=== PATIENT | male | born 1975 | race Two or more races ===

== ENCOUNTER 2024-05-18 23:09 | Inpatient (IN) | payer OTHER ==
[~2024-05-18] VITALS: Ht 180.3 cm; Wt 107.3 kg
--- NOTE | 2024-05-18 23:48 | ED.PDOC ---
History of Present Illness HPI Comments 49 y/o M, with a history of arterial vascular disease, obesity, DM, HLD, HTN, and right BKA, is BIBA for c/o left-leg weakness, left-foot and right-stump pain, diarrhea, and confusion, today. Patient is a poor historian. He endorses on left-foot pain onset after dropping a "battery" on it, recently, and deve loping right-stump pain, due to pain extra weight on it and it rubbing against his prosthetic from improper fitment. Patient states on having other remaining symptoms for 2x weeks following unprovoked onset. Patient was noted to have had a blood glucose of 234 on scene, with all remaining vitals within normal limits and stable. He has no reports chest pain, shortness of breath, nausea, vomiting, fever, or chills at this time. Chief Complaint: Lower Extremity Time Seen by MD: 23:15 Reviewed Notes: Nurses Notes, [employer] Notes, Medications, Allergies Information Source: Patient, Emergency Med Personnel Mode of Arrival: EMS Severity: Moderate Timing: Weeks Duration: Since onset Prehospital treatment: 12 Lead EKG, Accucheck, [employer] Past Medical History PAST MEDICAL HISTORY: DM, High Lipids, HTN Past Medical History (Other): arterial vascular disease, obesity Surgical History: BKA (right-leg) Family History Family History: Unknown Social History Smoker: Non-Smoker Alcohol: Occasionally Drugs: Denies Drug Use Lives In: Home All Other Systems: Reviewed and Negative (Comprehensive systems review obtained and negative except for what is stated in the HPI.) Physical Exam General Appearance: No Apparent Distress, Obese HEENT: Normal ENT Inspection, Pharynx Normal, TMs Normal Neck: Full Range of Motion, Non-Tender, Normal, Normal Inspection Respiratory: Chest Non-Tender, Lungs Clear, No Accessory Muscle Use, No Respiratory Distress, Normal Breath Sounds Cardiovascular: No Edema, No JVD, No Murmur, No Gallop, Normal Peripheral Pulses, Regular Rate/Rhythm Breast Exam: Deferred Gastrointestinal: No Organomegaly, Non Tender, No Pulsatile Mass, Normal Bowel Sounds, Soft Genitalia: Deferred Pelvic: Deferred Rectal: Deferred Extremities: No calf tenderness, Normal capillary refill, Normal inspection, Normal range of motion, Non-tender, No pedal edema, Other (Right below-knee amputation ) Musculoskeletal : Apperance: Normal Neurologic: Alert, superintendent service II-XII nml as Tested, No Motor Deficits, Normal Affect, Normal Mood, No Sensory Deficits Cerebellar Function: Normal Reflexes: Normal Skin: Dry, Normal Color, Warm Lymphatic: No Adenopathy Was a procedure done? Was a procedure done?: No EKG EKG : Pulse Rate (adult): 79 [place]: Normal Cardiac Rhythm: NSR Block: None Hypertrophy: None ST: Normal Differential Dx Considerations may include: viral syndrome, UTI, URI, fractures, contusions, bruising, hyperglycemia X-Ray, Labs, Meds, VS Vital Signs Date Time Temp Pulse Resp B/P (MAP) Pulse Ox O2 Delivery O2 Flow Rate FiO2 05/19/24 01:09 79 22 96 Room Air* 0 21 05/19/24 00:15 98.0 79 22 139/77 (97) 96 98.0 05/19/24 00:00 79 05/18/24 23:48 79 05/18/24 23:18 99.1 87 16 138/74 (95) 100 05/18/24 23:09 79 Lab Test 05/19/24 00:14 05/18/24 23:27 Range/Units White Blood Count 5.3 4.4-10.8 10^3/uL Red Blood Count 4.51 4.5-5.90 10^6/uL Hemoglobin 12.8 L 13.5-17.5 g/dL Hematocrit 39.1 L 41.0-53.0 % Mean Corpuscular Volume 86.8 80.0-100.0 fL Mean Corpuscular Hemoglobin 28.4 28.0-32.0 pg Mean Corpuscular Hemoglobin Concent 32.7 32.0-36.0 g/dL Red Cell Distribution Width 17.8 H 11.8-14.3 % Platelet Count 86 L 140-450 10^3/uL Mean Platelet Volume 8.4 6.9-10.8 fL Neutrophils (%) (Auto) 37.0-80.0 % Lymphocytes (%) (Auto) 10.0-50.0 % Monocytes (%) (Auto) 0.0-12.0 % Basophils (%) (Auto) 0.0-2.0 % Neutrophils # (Auto) 1.6-8.6 10 ^3/uL Lymphocytes # (Auto) 0.4-5.4 10 ^3/uL Monocytes # (Auto) 0-1.3 10 ^3/uL Differential Total Cells Counted 100.0 100 Neutrophils % (Manual) 60 37.0-80.0 Band Neutrophils % (Manual) 0 Lymphocytes % (Manual) 26 10.0-50.0 Monocytes % (Manual) 12 0-12 Eosinophils % (Manual) 2 0-7 Basophils % (Manual) 0 0.0-2.0 Metamyelocytes % (manual) 0 Myelocytes % (Manual) 0 Promyelocytes % (Manual) 0 Blast Cells % (Manual) 0 Reactive Lymphocytes 0 Platelet Estimate Decreased Sodium Level 135 L 136-145 mmol/L Potassium Level 4.7 3.5-5.1 mmol/L Chloride Level 99 98-107 mmol/L Carbon Dioxide Level 25 20-31 mmol/L Anion Gap 11 5-15 Blood Urea Nitrogen 39 H 9-23 mg/dL Creatinine 1.41 H 0.700-1.30 mg/dL Glomerular Filtration Rate Calc 61 >90 mL/min BUN/Creatinine Ratio 27.7 H 10.0-20.0 Serum Glucose 253 H 74-106 mg/dL Calcium Level 14.3 *H 8.7-10.4 mg/dL Troponin I High Sensitivity 5 7 </=54 ng/L Lactic Acid Level Pending Plasma/Serum Blood Alcohol Pending Current Medications Medications (Trade) Dose Ordered Sig/Suleman Route Start Time Stop Time Status Last Admin Sodium Chloride 1,000 ml @ 1,000 mls/hr Q1H ONCE IV 05/18/24 23:15 05/19/24 00:14 DC 05/19/24 00:23 Time of 1ST Reevaluation: 23:45 Reevaluation 1ST: Unchanged Patient Education/Counseling: Diagnosis, Treatment Family Education/Counseling: No Family Present Additional Information The following tests were ordered, and results were reviewed by me: EKG, the foot x-ray, troponin, CT head without contrast, chest x-ray, UA, CBC, BMP Additional Information was gathered from interviewing the following independent historians: EMS I reviewed and agreed with the following test results read by other providers: CT head without contrast, chest and left foot x-ray I discussed treatment and results with medical personnel and: patient Departure 1 Departure Time of Disposition: 01:34 (Patient with altered mental status and they symptoms of generalized deconditioning. Patient also with concern of cellulitis of the left lower extremity. We will empirically cover patient with antibiotics. Patient is not septic and so will not give the full fluid bolus And we will admit patient for further workup and expert consultation) Impression: Primary Impression: Left leg cellulitis Additional Impression: Metabolic encephalopathy Disposition: ADMITTED INPATIENT Admit to: Med Surg Condition: Serious Critical Care Note Critical Care Time?: No Stability Stability form required: No Heart Score Heart Score: Heart Score Response (Comments) Value History N/A 0 EKG N/A 0 Age N/A 0 Risk Factors N/A 0 Troponin N/A 0 Total 0 I personally scribed for MILES GUTIERREZ MD ([email or web address]) on 05/18/24 at 23:48. Electronically submitted by Carmelo Kim [email or web address]). MILES GUTIERREZ MD May 18, 2024 23:48
[2024-05-19] MEDS: SODIUM CHLORIDE 0.9% 1,000 ML IV ONE ×2 (00:23→02:22)
[2024-05-19 00:43] LABS: Hematocrit 39.1 % (41.0-53.0); Hemoglobin 12.8 g/dL (13.5-17.5); Mean Corpuscular Hemoglobin 28.4 pg (28.0-32.0); Mean Corpuscular Hgb Conc. 32.7 g/dL (32.0-36.0); Mean Corpuscular Volume 86.8 fL (80.0-100.0); Platelet Count (auto) 86 10^3/uL (140-450); Red Blood Cells 4.51 10^6/uL (4.5-5.90); Red Cell Distribution Width 17.8 % (11.8-14.3); White Blood Cell 5.3 10^3/uL (4.4-10.8)
[2024-05-19 00:51] LABS: Chloride 99 mmol/L (98-107); Potassium 4.7 mmol/L (3.5-5.1)
--- NOTE | 2024-05-19 00:51 | DVH ---
CHEST RADIOGRAPH Indication: weakness, ams Technique: Single frontal view of the chest was obtained COMPARISON: None FINDINGS: Lines and Tubes: None Lungs: Clear Pleura: No effusion. No pneumothorax. Cardiomediastinal contours: Unremarkable Bones: Unremarkable IMPRESSION: 1. No acute disease.
[2024-05-19 00:52] LABS: Anion Gap 11 (5-15); Carbon Dioxide 25 mmol/L (20-31)
--- NOTE | 2024-05-19 00:52 | DVH ---
CLINICAL INDICATION: battery dropped on foot TECHNIQUE: XY L FOOT 3 VIEW XRAY Comparison: None FINDINGS/IMPRESSION: There is no evidence of acute fracture or dislocation. Soft tissues are unremarkable.
--- NOTE | 2024-05-19 00:52 | DVH ---
EXAM: CT HEAD WITHOUT CONTRAST INDICATION: weakness, ams TECHNIQUE: CT of the head without intravenous contrast. Radiation Dose : 1. Head: CT Dose: CTDI volume is 66 mGy. Dose-length product is 1163 mGy*cm The dose indicators for CT are the volume Computed Tomography (CT) Dose Index (CTDIvol) and the Dose Length Product (DLP), and are measured in units of mGy and mGy-cm, respectively. These indicators are not patient dose, but values generated from the CT scanner acquisition factors. The report includes radiation exposure data for exposures received during this examination. COMPARISON: None FINDINGS: There is no evidence of acute intracranial hemorrhage, extra-axial collection, mass effect, midline s hift, herniation or hydrocephalus. The ventricles, sulci and cisterns are age appropriate. The nunn-white differentiation is intact. Patchy periventricular and subcortical white matter hypoattenuation is nonspecific but may be related to small vessel ischemic disease. The visualized paranasal sinuses and mastoid air cells are clear. The surrounding soft tissues and osseous structures are unremarkable. IMPRESSION: 1. No acute intracranial abnormality. Radiation optimization: All CT scans at this facility use at least one of these dose optimization melvina hniques: automated exposure control mA and/or kV adjustment per patient size (includes targeted exam s where dose is matched to clinical indication) or iterative reconstruction.
[2024-05-19 00:57] LABS: BUN/Creatinine Ratio 27.7 (10.0-20.0)
[2024-05-19 00:58] LABS: Blood Urea Nitrogen 39 mg/dL (9-23); Calcium 14.3 mg/dL (8.7-10.4); Glucose 253 mg/dL (74-106); Sodium 135 mmol/L (136-145)
[2024-05-19 00:59] LABS: Band Neutrophils % (manual) 0; Basophils % (manual) 0 (0.0-2.0); Blast Cells 0; Metamyelocytes % 0; Myelocytes % 0; Promyelocytes % 0; Reactive Lymphocytes 0
[2024-05-19 01:09] VITALS: PULSE 79; RESP 22; O2SAT 96
[2024-05-19 01:20] LABS: Eosinophils % (manual) 2 (0-7); Lymphocytes % (manual) 26 (10.0-50.0); Monocytes % (manual) 12 (0-12)
[2024-05-19 01:21] LABS: Platelet Estimate Decreased
[2024-05-19] MEDS: VANCOMYCIN 1GM/250ML KIT 200 ML IV ONE (01:28)
[2024-05-19 01:43] LABS: Lactic Acid w/Reflex 3.2 mmol/L (0.4-2.0)
[2024-05-19 02:11] LABS: Urine Bacteria None Seen /hpf (None Seen)
[2024-05-19] MEDS: ONDANSETRON HCL 4 MG/2 ML VIAL IV ONE ×2 (02:15→05:11)
[2024-05-19] MEDS: IOHEXOL 350 MG/ML 100ML IJ ONE ×2 (02:16→02:55)
[2024-05-19] MEDS: KETOROLAC TROMETH 30 MG/ML 1ML VIAL IV ONE (02:16)
[2024-05-19] MEDS: ACETAMINOPHEN 325 MG TAB PO ONE (02:16)
[2024-05-19] MEDS: MORPHINE SULFATE 4 MG/ML SYR/VIAL IV ONE ×2 (02:16→05:12)
[2024-05-19 02:25] LABS: Urine Blood Negative /uL (Negative); Urine Budding Yeast OCCASIONAL /hpf (None Seen); Urine Clarity Clear (Clear); Urine Color Light-Yellow (Yellow); Urine Protein, UAD Negative (Negative); Urine Specific Gravity 1.029 (1.001-1.035); Urine Squamous Epithelial Cell FEW /hpf (<5); Urine Urobilinogen Normal (Negative); Urine WBC 1 /HPF (0-3)
[2024-05-19 02:35] LABS: Amphetamine Screen, Urine Neg (NEGATIVE); Cocaine Screen, Urine Neg (NEGATIVE)
[2024-05-19 02:36] LABS: Barbiturate Scree,Urine Neg (NEGATIVE); Benzodiazephine Screen, Urine Pos (NEGATIVE); Cannabinoid Screen, Urine Neg (NEGATIVE); Opiate Scree,Urine Neg (NEGATIVE); Phencyclidine Screen, Urine Neg (NEGATIVE)
--- NOTE | 2024-05-19 03:31 | ECG ---
[facility] Test Date: 2024-05-18 Test Time: 23:07:44 Pat Name: GALINA HANSEN Department: ER Room: 0298 Gender: M Ripsaw Matcher: ER : 1975 Requested By: MILES GUTIERREZ Order Number: [id number] Reading MD: Dong Boss Measurements Intervals [place] Rate: 79 P: 5 TN: 149 QRS: 2 QRSD: 101 T: 23 QT: 365 QTc: 419 Interpretive Statements Sinus rhythm Baseline wander in lead(s) II,III,aVR,aVF,V2,V5 Electronically Signed On 05-21-2024 17:57:24 PST by Dong Boss Please click the below link to view image of tracing.
--- NOTE | 2024-05-19 04:37 | DVHHP2 ---
Admitting Diagnosis: Leg pain History of Present Illness 49 yo male patient with hx of DM, HLD, HTN, arterial vascular disease, and right BKA c/o left leg weakness and pain as well as right stump pain. Patient also sts to have diarrhea and confusion. Patient is a poor historian. While in the emergency department the patient was evaluated by the provider, As per provider: Labs, vital signs, and imagining monitored. Patient will be admitted for further evaluation and treatment. I discussed admission with the patient/family and is in agreement to treatment plan. Allergies: Coded Allergies: NO KNOWN ALLERGIES (Unverified , 05/19/24) Current Medications Current Medications Medications (Trade) Dose Ordered Sig/Suleman Route PRN Reason Start Time Stop Time Status Last Admin Acetaminophen/ Hydrocodone Bitart ([place] 5/325MG Tab) 1 tab Q4HP PRN PO MODERATE PAIN (4-6 PAIN SCALE) 05/19/24 04:45 Temazepam (Restoril) 15 mg QHSP PRN PO FOR INSOMNIA 05/19/24 04:45 Ondansetron HCl (Zofran) 4 mg Q4HP PRN IV NAUSEA / VOMITING 05/19/24 04:45 Enoxaparin Sodium (Lovenox) 40 mg DAILY SC 05/19/24 10:00 05/19/24 08:09 DC Acetaminophen (Tylenol Tablet) 650 mg Q6HP PRN PO PAIN SCALE 1-3 OR TEMP>100.4 05/19/24 04:45 Morphine Sulfate 2 mg Q4HPRN PRN IV SEVERE PAIN (7-10 PAIN SCALE) 05/19/24 04:45 05/19/24 17:36 Piperacillin Sod/ Tazobactam Sod 100 ml @ 100 mls/hr Q8HR IV 05/19/24 06:00 05/19/24 14:25 Diagnostic Test (Pha) (Accu-Chek Comfort Curve T) 1 strip ACHS 05/19/24 07:00 05/19/24 16:59 Insulin Human Regular (InsuLIN R) HS SC 05/19/24 22:00 Insulin Human Regular (InsuLIN R) AC SC 05/19/24 07:00 05/19/24 17:05 Dextrose 50 ml UD PRN IV Blood Sugar LESS THAN 60 05/19/24 04:45 Sodium Chloride 1,000 ml @ 100 mls/hr Q10H IV 05/19/24 10:45 05/19/24 10:45 Vancomycin HCl 0 ml @ 0 mls/hr UD IV 05/19/24 18:30 Review of Systems Constitutional: denies chills, denies fever, denies malaise Eyes: denies eye pain, denies vision change ENT: denies ear pain, denies headache, denies nasal congestion, denies painful swallowing, denies voice change Cardiovascular: denies chest pain, denies edema, denies orthopnea, denies palpitations, denies paroxysmal nocturnal dyspnea Respiratory: denies cough, denies shortness of breath Gastrointestinal: denies constipation, denies diarrhea, denies nausea, denies vomiting Genitourinary: denies dysuria, denies frequent urination, denies urethral discharge Musculoskeletal: denies back pain, denies joint pain, denies muscle pain Skin: denies bruising, denies itching, denies rash Neurological: denies focal weakness, denies headache, denies sensory changes Psychiatric: denies anxiety, denies depression Endocrine: denies polydipsia, denies polyuria Hematologic/Lymphatic: denies easy bleeding, denies easy bruising, denies enlarged lymph nodes Allergic/Immunologic: denies allergy, denies hives Vital Signs Vital Signs Date Time Temp Pulse Resp B/P (MAP) Pulse Ox O2 Delivery O2 Flow Rate FiO2 05/19/24 20:18 98.8 87 17 123/80 (94) 92 98.8 05/19/24 07:50 Room Air* 0 21 Physical Exam General Appearance: alert, no distress HEENT: EOMI, PERRLA, normal external inspect of ears, no icterus, no nasal thalia inage Neck: no carotid bruit, no jugular venous distention (JVD), no lymphadenopathy Chest: normal thorax Respiratory: clear to auscultation, normal air movement Cardiovascular: regular rate and rhythm, no diastolic murmur, no jugular venous distention (JVD), no rub, no systolic murmur Abdominal: soft, no hepatomegaly, no mass, no splenomegaly, no tenderness Genitourinary: grossly normal external Musculoskeletal: no joint tenderness, no swelling Extremities: normal pulses, no calf tenderness, no clubbing, no cyanosis, no edema Skin: no bruising, no jaundice, no rash Neurological: alert, No focal deficit Results Labs Test 05/19/24 19:13 05/19/24 16:57 05/19/24 02:25 05/19/24 02:00 Range/Units Lactic Acid Level 1.3 0.4-2.0 mmol/L POC Glucose 313 H 70-106 mg/dl Troponin I High Sensitivity 5 </=54 ng/L Urine Creatinine 62.19 30.0-125.0 mg/dL Urine Protein/Creatinine Ratio 0.19 Urine Total Protein 11.9 1-14 mg/dL Urine Opiates Screen Neg NEGATIVE Urine Fentanyl Screen Neg NEGATIVE Urine Barbiturates Screen Neg NEGATIVE Urine Phencyclidine Screen Neg NEGATIVE Urine Amphetamines Screen Neg NEGATIVE Urine Benzodiazepines Screen Pos NEGATIVE Urine Cocaine Screen Neg NEGATIVE Urine Cannabinoids Screen Neg NEGATIVE Test 05/19/24 00:14 05/18/24 23:27 05/18/24 02:00 Range/Units White Blood Count 5.3 4.4-10.8 10^3/uL Red Blood Count 4.51 4.5-5.90 10^6/uL Hemoglobin 12.8 L 13.5-17.5 g/dL Hematocrit 39.1 L 41.0-53.0 % Mean Corpuscular Volume 86.8 80.0-100.0 fL Mean Corpuscular Hemoglobin 28.4 28.0-32.0 pg Mean Corpuscular Hemoglobin Concent 32.7 32.0-36.0 g/dL Red Cell Distribution Width 17.8 H 11.8-14.3 % Platelet Count 86 L 140-450 10^3/uL Mean Platelet Volume 8.4 6.9-10.8 fL Neutrophils (%) (Auto) 37.0-80.0 % Lymphocytes (%) (Auto) 10.0-50.0 % Monocytes (%) (Auto) 0.0-12.0 % Basophils (%) (Auto) 0.0-2.0 % Neutrophils # (Auto) 1.6-8.6 10 ^3/uL Lymphocytes # (Auto) 0.4-5.4 10 ^3/uL Monocytes # (Auto) 0-1.3 10 ^3/uL Differential Total Cells Counted 100.0 100 Neutrophils % (Manual) 60 37.0-80.0 Band Neutrophils % (Manual) 0 Lymphocytes % (Manual) 26 10.0-50.0 Monocytes % (Manual) 12 0-12 Eosinophils % (Manual) 2 0-7 Basophils % (Manual) 0 0.0-2.0 Metamyelocytes % (manual) 0 Myelocytes % (Manual) 0 Promyelocytes % (Manual) 0 Blast Cells % (Manual) 0 Reactive Lymphocytes 0 Platelet Estimate Decreased Sodium Level 135 L 136-145 mmol/L Potassium Level 4.7 3.5-5.1 mmol/L Chloride Level 99 98-107 mmol/L Carbon Dioxide Level 25 20-31 mmol/L Anion Gap 11 5-15 Blood Urea Nitrogen 39 H 9-23 mg/dL Creatinine 1.41 H 0.700-1.30 mg/dL Glomerular Filtration Rate Calc 61 >90 mL/min BUN/Creatinine Ratio 27.7 H 10.0-20.0 Serum Glucose 253 H 74-106 mg/dL Hemoglobin A1c 11.0 H <5.7 % A1C Calcium Level 14.3 *H 8.7-10.4 mg/dL Plasma/Serum Blood Alcohol < 3.0 <10 mg/dL Urine Color Light-yellow Yellow Urine Clarity Clear Clear Urine pH 7.0 5.0-9.0 Urine Specific [place] 1.029 1.001-1.035 Urine Protein Negative Negative Urine Ketones Negative Negative Urine Blood Negative Negative /uL Urine Nitrite Negative Negative Urine Bilirubin Negative Negative Urine Urobilinogen Normal Negative mg/dL Urine Leukocyte Esterase Negative Negative /uL Urine RBC 1 0 - 3 /hpf Urine Microscopic WBC 1 0-3 /HPF Urine Squamous Epithelial Cells Few <5 /hpf Urine Bacteria None seen None Seen /hpf Urine Yeast (Budding) Occasional None Seen /hpf Urine Glucose 4+ H Normal mg/dL Plan 1. Right BKA Monitor, IV fluids 2. HLD Monitor, DVT prophylaxis 3. PAD Monitor, PPI 4. DM II & hyperglycemia Monitor, insulin ss 5. Left leg cellulitis Monitor, IV abx 6. Metabolic encephalopathy Monitor neurostatus 7. Hypercalcemia Monitor , nephrology consult Plan discussed with: Patient, Other TATIANA JAQUEZ NP May 19, 2024 04:37
[2024-05-19] MEDS ORDERED: TEMAZEPAM 15 MG CAP PO PRN (04:45)
[2024-05-19] MEDS ORDERED: ACETAMINOPHEN 325 MG TAB PO PRN (04:45)
[2024-05-19] MEDS ORDERED: ONDANSETRON HCL 4 MG/2 ML VIAL IV PRN (04:45)
[2024-05-19] MEDS ORDERED: DEXTROSE (50%) 50ML SYRG IV PRN (04:45)
[2024-05-19] MEDS: PIPERACILLIN-TAZOB 3.375GM 100 ML IV SCH (06:03)
[2024-05-19] MEDS: ACCU-CHEK COMFORT CURVE STRIP VI SCH (06:46)
[2024-05-19] MEDS: InsuLIN REG 1unit/0.01ml Soln (100units/ml) SC SCH ×2 (06:46→22:53)
[2024-05-19 07:50] VITALS: PULSE 87; RESP 14; O2SAT 92
[2024-05-19] MEDS ORDERED: ENOXAPARIN SOD 40 MG/0.4 ML SYRINGE SC SCH (10:00)
[2024-05-19] MEDS: SODIUM CHLORIDE 0.9% 1,000 ML IV SCH (10:45)
--- NOTE | 2024-05-19 11:04 | DVH ---
Procedure: CT CT ANGIO LOWER EXTREMITY W 05/19/2024 04:00 AM Indication: better evaluate left leg, decreased pulses Comparison Study: None Technique: Axial images of the left lower extremity from the level of iliac crest down to the toes w ere obtained after administration of bolus of intravenous contrast and reformatted in coronal and sag ittal planes. 3D MIP images in coronal sagittal planes reconstructing and separate workstation and kennedy bmitted to PACS for radiologist review. All CT scans at this medical facility are performed using dos e modulation techniques as appropriate to a performed exam including the following: Automated exposur e control was utilized; adjustment of the MA and/or KV according to patient size; and use of iterativ e reconstruction technique. CT Dose: CTDI volume is 38 mGy. Dose-length product is 3201.1 mGy*cm FINDINGS: Vasculature: There is poor opacification of the vessels rendering this angiogram nearly nondiagnostic . The external iliac artery is normal in caliber and patent. Mild atherosclerotic calcification of t he common femoral artery noted. Atherosclerotic calcification of deep and superficial femoral arterie s noted with a moderate stenosis. Moderate to severe atherosclerotic calcification of the entire supe rficial femoral and popliteal arteries noted with short-segment areas of high-grade stenosis/occlusio n. 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 No definite flow is seen in the distal superficial f emoral artery and popliteal artery. Diffuse atherosclerotic calcification of the anterior tibial, pos terior tibial and peroneal arteries with no definite flow identified. The dorsalis pedis artery is oc cluded. Other: No acute osseous abnormality. Joint spaces are maintained. The visualized muscles are normal i n bulk and morphology. Subcutaneous edema noted on in the lower thigh, leg and foot. IV contrast is s een in the urinary bladder. IMPRESSION: 1.Nondiagnostic CT angiogram of the left lower extremity due to poor bolus injection timing. The con trast is already the arterial system and excreted into the renal collecting system bladder. 2.Severe peripheral arterial disease suggestion of areas of high-grade stenosis/occlusion in the sup erficial femoral, popliteal, calf arteries dorsalis pedis artery. Recommend further evaluation with a rterial Doppler of the lower extremity.
[2024-05-19] MEDS: MORPHINE SULFATE INJ 2 MG/ml SYRG IV PRN (11:08)
--- NOTE | 2024-05-19 16:36 | DVHINCON2 ---
Date of service: May 19, [address] Marquis Bautista Reason for Consultation ABBEY, and hypercalcemia History of Present Illness 49 Y/O M with history of DM, HTN, HLD, PAD, s/p Rt BKA, and obesity presented with chief complaint of Lt foot pain after dropping and object on it. He also c omplains of Lt leg weakness, and Rt stump pain. He also endorses diarrhea. Labs significant for Cr: 1.41 mg/dl , baseline Cr is unknown. Calcium 14.3. Lactic acid is 3.2. WBC is 5.3. Patient was has been started on IV fluid. Chest x-ray shows clear lungs. Patient was ultimately feet with contrast for left lower extremity angiography. States he has been taking several TUMS over the past few days. Nephrology UTI,-. Past Medical History DM, HTN, HLD, PAD, and obesity Past Surgical History Right BKA Allergies: Coded Allergies: NO KNOWN ALLERGIES (Unverified , 05/19/24) Current Medications Current Medications Medications (Trade) Dose Ordered Sig/Suleman Route PRN Reason Start Time Stop Time Status Last Admin Acetaminophen/ Hydrocodone Bitart (Organ 5/325MG Tab) 1 tab Q4HP PRN PO MODERATE PAIN (4-6 PAIN SCALE) 05/19/24 04:45 Temazepam (Restoril) 15 mg QHSP PRN PO FOR INSOMNIA 05/19/24 04:45 Ondansetron HCl (Zofran) 4 mg Q4HP PRN IV NAUSEA / VOMITING 05/19/24 04:45 Enoxaparin Sodium (Lovenox) 40 mg DAILY SC 05/19/24 10:00 05/19/24 08:09 DC Acetaminophen (Tylenol Tablet) 650 mg Q6HP PRN PO PAIN SCALE 1-3 OR TEMP>100.4 05/19/24 04:45 Morphine Sulfate 2 mg Q4HPRN PRN IV SEVERE PAIN (7-10 PAIN SCALE) 05/19/24 04:45 05/19/24 11:08 Piperacillin Sod/ Tazobactam Sod 100 ml @ 100 mls/hr Q8HR IV 05/19/24 06:00 05/19/24 14:25 Diagnostic Test (Pha) (Accu-Chek Comfort Curve T) 1 strip ACHS 05/19/24 07:00 05/19/24 11:32 Insulin Human Regular (InsuLIN R) HS SC 05/19/24 22:00 Insulin Human Regular (InsuLIN R) AC SC 05/19/24 07:00 05/19/24 11:33 Dextrose 50 ml UD PRN IV Blood Sugar LESS THAN 60 05/19/24 04:45 Sodium Chloride 1,000 ml @ 100 mls/hr Q10H IV 05/19/24 10:45 05/19/24 10:45 Review of Systems As per HPI all other systems were reviewed and are negative H&P Exam Vital Signs/I&O Vital Sign Date Time Temp Pulse Resp B/P (MAP) Pulse Ox O2 Delivery O2 Flow Rate FiO2 05/19/24 12:01 87 05/19/24 12:00 14 101/58 (72) 91 05/19/24 07:50 98.4 98.4 05/19/24 07:50 Room Air* 0 21 Intake and Output 05/18/24 05/19/24 19:00 07:00 Output Total 700 ml Balance -700 ml Output Urine Total 700 ml Physical Exam Gen: NAD HEENT: NC,AT Lungs: C TA b/l Cardiac: RRR, no murmur Abd: soft, no tenderness Ext: Rt BKA Neuro: AAOx3, no focal deficits Labs/Diagnostic Data Labs/Diagnostic Data Laboratory Tests Test 05/19/24 11:28 05/19/24 06:43 05/19/24 02:25 05/19/24 02:00 Range/Units POC Glucose 244 H 260 H 70-106 mg/dl Lactic Acid Level 2.3 *H 0.4-2.0 mmol/L Troponin I High Sensitivity 5 </=54 ng/L Urine Opiates Screen Neg NEGATIVE Urine Fentanyl Screen Neg NEGATIVE Urine Barbiturates Screen Neg NEGATIVE Urine Phencyclidine Screen Neg NEGATIVE Urine Amphetamines Screen Neg NEGATIVE Urine Benzodiazepines Screen Pos NEGATIVE Urine Cocaine Screen Neg NEGATIVE Urine Cannabinoids Screen Neg NEGATIVE Test 05/19/24 00:14 05/18/24 23:27 05/18/24 02:00 Range/Units White Blood Count 5.3 4.4-10.8 10^3/uL Red Blood Count 4.51 4.5-5.90 10^6/uL Hemoglobin 12.8 L 13.5-17.5 g/dL Hematocrit 39.1 L 41.0-53.0 % Mean Corpuscular Volume 86.8 80.0-100.0 fL Mean Corpuscular Hemoglobin 28.4 28.0-32.0 pg Mean Corpuscular Hemoglobin Concent 32.7 32.0-36.0 g/dL Red Cell Distribution Width 17.8 H 11.8-14.3 % Platelet Count 86 L 140-450 10^3/uL Mean Platelet Volume 8.4 6.9-10.8 fL Neutrophils (%) (Auto) 37.0-80.0 % Lymphocytes (%) (Auto) 10.0-50.0 % Monocytes (%) (Auto) 0.0-12.0 % Basophils (%) (Auto) 0.0-2.0 % Neutrophils # (Auto) 1.6-8.6 10 ^3/uL Lymphocytes # (Auto) 0.4-5.4 10 ^3/uL Monocytes # (Auto) 0-1.3 10 ^3/uL Differential Total Cells Counted 100.0 100 Neutrophils % (Manual) 60 37.0-80.0 Band Neutrophils % (Manual) 0 Lymphocytes % (Manual) 26 10.0-50.0 Monocytes % (Manual) 12 0-12 Eosinophils % (Manual) 2 0-7 Basophils % (Manual) 0 0.0-2.0 Metamyelocytes % (manual) 0 Myelocytes % (Manual) 0 Promyelocytes % (Manual) 0 Blast Cells % (Manual) 0 Reactive Lymphocytes 0 Platelet Estimate Decreased Sodium Level 135 L 136-145 mmol/L Potassium Level 4.7 3.5-5.1 mmol/L Chloride Level 99 98-107 mmol/L Carbon Dioxide Level 25 20-31 mmol/L Anion Gap 11 5-15 Blood Urea Nitrogen 39 H 9-23 mg/dL Creatinine 1.41 H 0.700-1.30 mg/dL Glomerular Filtration Rate Calc 61 >90 mL/min BUN/Creatinine Ratio 27.7 H 10.0-20.0 Serum Glucose 253 H 74-106 mg/dL Calcium Level 14.3 *H 8.7-10.4 mg/dL Troponin I High Sensitivity 5 7 </=54 ng/L Lactic Acid Level 3.2 *H 0.4-2.0 mmol/L Plasma/Serum Blood Alcohol < 3.0 <10 mg/dL Urine Color Light-yellow Yellow Urine Clarity Clear Clear Urine pH 7.0 5.0-9.0 Urine Specific [place] 1.029 1.001-1.035 Urine Protein Negative Negative Urine Ketones Negative Negative Urine Blood Negative Negative /uL Urine Nitrite Negative Negative Urine Bilirubin Negative Negative Urine Urobilinogen Normal Negative mg/dL Urine Leukocyte Esterase Negative Negative /uL Urine RBC 1 0 - 3 /hpf Urine Microscopic WBC 1 0-3 /HPF Urine Squamous Epithelial Cells Few <5 /hpf Urine Bacteria None seen None Seen /hpf Urine Yeast (Budding) Occasional None Seen /hpf Urine Glucose 4+ H Normal mg/dL Assessment Assessment: ABBEY, secondary to hypercalcemia. unclear etiology, ? possibly from excessive TUMS intake Hypercalcemia Cellulitis Lactic acidosis PAD s/p Rt BKA DM HTN HLD obesity Plan: Continue NS at 100 cc/h If no adequate improvement in hypercalcemia then will consider Zometa will obtain hypercalcemia work up Obtain albumin level to correct for Ca level Obtain UA, and UPCR Daily, BMp, and Mg Strict I&Os Plan discussed with: Patient BIN HASSAN MD May 19, 2024 16:36
[2024-05-19 17:21] LABS: Protein, Urine 11.9 mg/dL (1-14)
[2024-05-19 17:24] LABS: Creatinine, Urine 62.19 mg/dL (30.0-125.0); Urine Protein/Creatinine Ratio 0.19
[2024-05-19 18:11] LABS: Lactic Acid w/Reflex 2.5 mmol/L (0.4-2.0)
[2024-05-19] MEDS ORDERED: VANCOMYCIN PER PHARMACY 0 MG IV SCH (18:30)
[2024-05-19] MEDS: VANCOMYCIN 1.25GM/250ML 250 ML IV ONE (21:53)
[2024-05-19 22:14] VITALS: BP 133/64; PULSE 76; RESP 19; TEMP 97.5; O2SAT 98
[2024-05-19] MEDS ORDERED: LISI40TA16 PO (22:36)
[2024-05-19] MEDS ORDERED: ATOR80TA PO (22:36)
[2024-05-19] MEDS ORDERED: CYCL-611 PO (22:36)
[2024-05-19] MEDS ORDERED: OMEG-86 PO (22:36)
[2024-05-19] MEDS ORDERED: BUPR150T18 PO (22:36)
[2024-05-19] MEDS ORDERED: FENO200C25 PO (22:36)
[2024-05-19] MEDS ORDERED: ALPR1TAB7 PO (22:36)
[2024-05-19] MEDS ORDERED: ASPI81CH59 PO (22:36)
[2024-05-19] MEDS ORDERED: OMEP20TA PO (22:36)
[2024-05-19] MEDS ORDERED: HYDR-4072 PO (22:36)
[2024-05-19] MEDS ORDERED: METF-1145 PO (22:36)
[2024-05-19] MEDS ORDERED: METF-489 PO (22:36)
[2024-05-19] MEDS ORDERED: DAPA1TAB4 PO (22:36)
[2024-05-19] MEDS ORDERED: GABA-339 PO (22:36)
[2024-05-20] VITALS (7 sets, daily range): BP systolic 111–135; BP diastolic 50–84; PULSE 74–92; RESP 16–21; TEMP 97.5–98.1; O2SAT 96–99
[2024-05-20] MEDS: HYDROcodone-ACET 5/325MG TAB PO PRN (01:08)
[2024-05-20 07:25] LABS: Basophils # (auto) 0 10 ^3/uL (0-0.2); Basophils % (auto) 1.1 % (0.0-2.0); Eosinophils # (auto) 0.1 10 ^3/uL (0-0.8); Eosinophils % (auto) 2.5 % (0.0-7.0); Hematocrit 34.2 % (41.0-53.0); Hemoglobin 11.5 g/dL (13.5-17.5); Lymphocytes # (auto) 1.6 10 ^3/uL (0.4-5.4); Lymphocytes % (auto) 38.2 % (10.0-50.0); Mean Corpuscular Hemoglobin 28.9 pg (28.0-32.0); Mean Corpuscular Hgb Conc. 33.6 g/dL (32.0-36.0); Mean Corpuscular Volume 86.1 fL (80.0-100.0); Monocytes # (auto) 0.6 10 ^3/uL (0-1.3); Monocytes % (auto) 13.1 % (0.0-12.0); Neutrophils # (auto) 1.9 10 ^3/uL (1.6-8.6); Neutrophils % (auto) 45.1 % (37.0-80.0); Platelet Count (auto) 111 10^3/uL (140-450); Red Blood Cells 3.97 10^6/uL (4.5-5.90); Red Cell Distribution Width 17.7 % (11.8-14.3); White Blood Cell 4.2 10^3/uL (4.4-10.8)
[2024-05-20 07:53] LABS: Alanine Aminotransferase 29 U/L (7-40); Albumin 4.2 g/dL (3.2-4.8); Alkaline Phosphatase 54 U/L (46-116); Anion Gap 8 (5-15); BUN/Creatinine Ratio 23.5 (10.0-20.0); Carbon Dioxide 27 mmol/L (20-31); Chloride 104 mmol/L (98-107); Potassium 3.9 mmol/L (3.5-5.1); Sodium 139 mmol/L (136-145); Total Protein 6.8 g/dL (5.7-8.2)
[2024-05-20 07:54] LABS: Bilirubin, Total 0.4 mg/dL (0.2-1.0)
[2024-05-20 08:00] LABS: Aspartate Aminotransferase 44 U/L (13-40); Blood Urea Nitrogen 31 mg/dL (9-23); Calcium 11.1 mg/dL (8.7-10.4); Glucose 187 mg/dL (74-106)
[2024-05-20] MEDS: VANCOMYCIN 1GM/250ML KIT 250 ML IV SCH (09:25)
--- NOTE | 2024-05-20 10:45 | DVHPN2 ---
Progress Note - Dictate Date Seen: May 20, 2024 Medical Necessity Reason Pt with a Central, PICC or Fol: No vital signs Vital Sign Date Time Temp Pulse Resp B/P (MAP) Pulse Ox O2 Delivery O2 Flow Rate FiO2 05/20/24 08:53 98.1 77 16 134/84 (101) 98 98.1 05/20/24 08:10 Room Air* 0 21 Total Intake and Output 05/19/24 05/19/24 05/20/24 15:00 23:00 07:00 Intake Total 100 ml 380 ml Output Total 800 ml Balance 100 ml -420 ml medications Current Medications Medications Dose Ordered Sig/Suleman Route Start Time Stop Time Status Last Admin Dose Admin Acetaminophen/ Hydrocodone Bitart 1 tab Q4HP PRN PO 05/19/24 04:45 05/20/24 09:24 1 TAB Temazepam 15 mg QHSP PRN PO 05/19/24 04:45 Ondansetron HCl 4 mg Q4HP PRN IV 05/19/24 04:45 Acetaminophen 650 mg Q6HP PRN PO 05/19/24 04:45 Morphine Sulfate 2 mg Q4HPRN PRN IV 05/19/24 04:45 05/20/24 07:55 2 MG Piperacillin Sod/ Tazobactam Sod 100 ml @ 100 mls/hr Q8HR IV 05/19/24 06:00 05/20/24 05:30 100 MLS/HR Diagnostic Test (Pha) 1 strip ACHS 05/19/24 07:00 05/20/24 07:09 1 STRIP Insulin Human Regular HS SC 05/19/24 22:00 05/19/24 22:53 8 UNITS Insulin Human Regular AC SC 05/19/24 07:00 05/20/24 06:25 6 UNITS Dextrose 50 ml UD PRN IV 05/19/24 04:45 Sodium Chloride 1,000 ml @ 100 mls/hr Q10H IV 05/19/24 10:45 05/20/24 09:23 100 MLS/HR Vancomycin HCl 0 ml @ 0 mls/hr UD IV 05/19/24 18:30 Vancomycin HCl 250 ml @ 250 mls/hr Q12HR IV 05/20/24 10:00 05/20/24 09:25 250 MLS/HR objective General Appearance: alert, no distress HEENT: EOMI, PERRLA, normal external inspect of ears, no icterus, no nasal drainage Neck: no carotid bruit, no jugular venous distention (JVD), no lymphadenopathy Chest: normal thorax Respiratory: clear to auscultation, normal air movement Cardiovascular: regular rate and rhythm, no diastolic murmur, no jugular venous distention (JVD), no rub, no systolic murmur Abdominal: soft, no hepatomegaly, no mass, no splenomegaly, no tenderness Genitourinary: grossly normal external Musculoskeletal: no joint tenderness, no swelling Extremities: normal pulses, no calf tenderness, no clubbing, no cyanosis, no edema Skin: no bruising, no jaundice, no rash Neurological: alert, No focal deficit laboratory and microbiology Laboratory Tests 05/20/24 06:27 Test 05/20/24 06:27 Range/Units Serum Glucose 187 H 74-106 mg/dL Problem List 1. Right BKA Monitor, IV fluids 2. HLD Monitor, DVT prophylaxis 3. PAD Monitor, PPI 4. DM II & hyperglycemia Monitor, insulin ss 5. Left leg cellulitis Monitor, IV abx 6. Metabolic encephalopathy Monitor neurostatus 7. Hypercalcemia Monitor , nephrology consult Assessment/Plan Subjective: Patient is awake and alert. Objective: Patient was admitted for pain in the left lower extremity and found to have sepsis related to cellulitis. He presented with elevated lactate levels and was started on Zosyn. Vancomycin was added, and lactate levels are now within normal limits. The patient reports improvement in the color of the left leg. A positive Vera's sign was noted. Venous Doppler ultrasound confirmed an acute DVT in the left lower extremity. The patient also has hypercalcemia, possibly related to excessive Tums use. Nephrology has been consulted. Neuro status is now at baseline. Plan: Start full-dose Lovenox BID for DVT in the left lower extremity. Continue insulin sliding scale and Lantus for hyperglycemia related to type 2 diabetes. Monitor neuro status. Plan discussed with: Patient, Other TATIANA JAQUEZ NP May 20, 2024 10:45
[2024-05-20] MEDS: INSULIN LANTUS (GLARGINE) 1 /0.01ml (100units/ml) SC SCH (11:39)
[2024-05-20] MEDS: MORPHINE SULFATE INJ 2 MG/ml SYRG IV PRN (13:00)
--- NOTE | 2024-05-20 13:10 | DVH ---
Clinical History: Pain, r/o dvt Comparison: None Technique: Duplex Doppler evaluation of the deep venous system of the left lower extremity from the common femor al vein to the popliteal vein including color Doppler and spectral/pulsed waveform analysis was perfo rmed. Findings: The common femoral vein demonstrates appropriate compressibility and waveform variability. There is compressibility/patency of the great saphenous vein at the proximal thigh. The femoral vein demonstrates demonstrates incomplete compressibility. The deep femoral vein demonstrates appropriate compressibility and waveform variability. The popliteal vein demonstrates incomplete compressibility. There is incomplete compressibility at the tibioperoneal trunk. Impression: Nonocclusive thrombus in the left mid superficial femoral vein, popliteal vein and posterior tibial v ein. Critical findings discussed with MORGAN Olivo by Dr. Slade via phone on 05/20/2024 01:05 PM. If clinical concern/symptoms persist or worsen, short-interval follow-up study is suggested.
[2024-05-20] MEDS: ENOXAPARIN SOD 120 MG/0.8 ML SYRINGE SC ONE (13:49)
--- NOTE | 2024-05-20 14:48 | DVHPN2 ---
Progress Note - Dictate Date Seen: May 20, 2024 Medical Necessity Reason Pt with a Central, PICC or Fol: No Subjective no new symptoms vital signs Vital Sign Date Time Temp Pulse Resp B/P (MAP) Pulse Ox O2 Delivery O2 Flow Rate FiO2 05/20/24 13:30 83 16 128/80 05/20/24 12:52 97.6 99 97.6 05/20/24 08:10 Room Air* 0 21 Total Intake and Output 05/19/24 05/19/24 05/20/24 15:00 23:00 07:00 Intake Total 100 ml 380 ml Output Total 800 ml Balance 100 ml -420 ml medications Current Medications Medications Dose Ordered Sig/Suleman Route Start Time Stop Time Status Last Admin Dose Admin Temazepam 15 mg QHSP PRN PO 05/19/24 04:45 Ondansetron HCl 4 mg Q4HP PRN IV 05/19/24 04:45 Acetaminophen 650 mg Q6HP PRN PO 05/19/24 04:45 Piperacillin Sod/ Tazobactam Sod 100 ml @ 100 mls/hr Q8HR IV 05/19/24 06:00 05/20/24 05:30 100 MLS/HR Diagnostic Test (Pha) 1 strip ACHS 05/19/24 07:00 05/20/24 11:32 1 STRIP Insulin Human Regular HS SC 05/19/24 22:00 05/19/24 22:53 8 UNITS Insulin Human Regular AC SC 05/19/24 07:00 05/20/24 11:33 6 UNITS Dextrose 50 ml UD PRN IV 05/19/24 04:45 Sodium Chloride 1,000 ml @ 100 mls/hr Q10H IV 05/19/24 10:45 05/20/24 09:23 100 MLS/HR Vancomycin HCl 0 ml @ 0 mls/hr UD IV 05/19/24 18:30 Vancomycin HCl 250 ml @ 250 mls/hr Q12HR IV 05/20/24 10:00 05/20/24 09:25 250 MLS/HR Morphine Sulfate 4 mg Q4HPRN PRN IV 05/20/24 11:30 05/20/24 13:00 4 MG Oxycodone/ Acetaminophen 2 tab Q4HP PRN PO 05/20/24 11:30 Sennosides 17.2 mg HS PO 05/20/24 22:00 Insulin Glargine 10 units BID@1000,2200 SC 05/20/24 11:30 05/20/24 11:39 10 UNITS Enoxaparin Sodium 110 mg Q12HR SC 05/20/24 22:00 objective Gen: NAD HEENT: NC,AT Lungs: C TA b/l Cardiac: RRR, no murmur Abd: soft, no tenderness Ext: Rt BKA Neuro: AAOx3, no focal deficits laboratory and microbiology Laboratory Tests 05/20/24 06:27 Test 05/20/24 06:27 Range/Units Serum Glucose 187 H 74-106 mg/dL Assessment/Plan Assessment: ABBEY, secondary to hypercalcemia. UA is bland Hypercalcemia. unclear etiology, ? possibly from excessive TUMS intake. Cellulitis Lactic acidosis PAD s/p Rt BKA DM HTN HLD obesity Plan: Continue NS at 100 cc/h f/u hypercalcemia work up PTH is appropriately low 25 oh vit D is not elevated. it is low Obtain albumin level to correct for Ca level Daily, BMp, and Mg Strict I&Os Plan discussed with: Patient BIN HASSAN MD May 20, 2024 14:48
[2024-05-20] MEDS: ENOXAPARIN SOD 120 MG/0.8 ML SYRINGE SC SCH (21:29)
[2024-05-20] MEDS: SENNA 8.6 MG TAB PO SCH (21:29)
[2024-05-20] MEDS: OXYCODONE W/ ACETAMINOPHEN 5/325MG TABLET PO PRN (21:47)
[2024-05-21] VITALS (7 sets, daily range): BP systolic 128–150; BP diastolic 63–92; PULSE 72–85; RESP 16–18; TEMP 36.7; O2SAT 97–98
--- NOTE | 2024-05-21 10:14 | DVHPN2 ---
Progress Note - Dictate Medical Necessity Reason Pt with a Central, PICC or Fol: No vital signs Vital Sign Date Time Temp Pulse Resp B/P (MAP) Pulse Ox O2 Delivery O2 Flow Rate FiO2 05/21/24 09:41 75 17 135/63 05/21/24 09:02 98.0 97 98.0 05/20/24 20:00 Nasal Cannula* 2 28 Total Intake and Output 05/20/24 05/20/24 05/21/24 15:00 23:00 07:00 Intake Total 100 ml 1575 ml 1200 ml Output Total 1100 ml 800 ml Balance 100 ml 475 ml 400 ml medications Current Medications Medications Dose Ordered Sig/Suleman Route Start Time Stop Time Status Last Admin Dose Admin Temazepam 15 mg QHSP PRN PO 05/19/24 04:45 Ondansetron HCl 4 mg Q4HP PRN IV 05/19/24 04:45 Acetaminophen 650 mg Q6HP PRN PO 05/19/24 04:45 Piperacillin Sod/ Tazobactam Sod 100 ml @ 100 mls/hr Q8HR IV 05/19/24 06:00 05/21/24 05:45 100 MLS/HR Diagnostic Test (Pha) 1 strip ACHS 05/19/24 07:00 05/21/24 06:32 1 STRIP Insulin Human Regular HS SC 05/19/24 22:00 05/20/24 21:30 6 UNITS Insulin Human Regular AC SC 05/19/24 07:00 05/21/24 06:31 2 UNITS Dextrose 50 ml UD PRN IV 05/19/24 04:45 Sodium Chloride 1,000 ml @ 100 mls/hr Q10H IV 05/19/24 10:45 05/20/24 22:39 100 MLS/HR Vancomycin HCl 0 ml @ 0 mls/hr UD IV 05/19/24 18:30 Vancomycin HCl 250 ml @ 250 mls/hr Q12HR IV 05/20/24 10:00 05/21/24 09:45 250 MLS/HR Morphine Sulfate 4 mg Q4HPRN PRN IV 05/20/24 11:30 05/21/24 09:41 4 MG Oxycodone/ Acetaminophen 2 tab Q4HP PRN PO 05/20/24 11:30 05/21/24 04:07 2 TAB Sennosides 17.2 mg HS PO 05/20/24 22:00 05/20/24 21:29 17.2 MG Insulin Glargine 10 units BID@1000,2200 SC 05/20/24 11:30 05/21/24 09:46 10 UNITS Enoxaparin Sodium 110 mg Q12HR SC 05/20/24 22:00 05/21/24 09:33 110 MG objective General Appearance: alert, no distress HEENT: EOMI, PERRLA, normal external inspect of ears, no icterus, no nasal drainage Neck: no carotid bruit, no jugular venous distention (JVD), no lymphadenopathy Chest: normal thorax Respiratory: clear to auscultation, normal air movement Cardiovascular: regular rate and rhythm, no diastolic murmur, no jugular venous distention (JVD), no rub, no systolic murmur Abdominal: soft, no hepatomegaly, no mass, no splenomegaly, no tenderness Genitourinary: grossly normal external Musculoskeletal: no joint tenderness, no swelling Extremities: normal pulses, no calf tenderness, no clubbing, no cyanosis, no edema Skin: no bruising, no jaundice, no rash Neurological: alert, No focal deficit laboratory and microbiology Laboratory Tests 05/20/24 06:27 Test 05/20/24 06:27 Range/Units Serum Glucose 187 H 74-106 mg/dL Problem List 1. Right BKA Monitor, IV fluids 2. HLD Monitor, DVT prophylaxis 3. PAD Monitor, PPI 4. DM II & hyperglycemia Monitor, insulin ss 5. Left leg cellulitis Monitor, IV abx 6. Metabolic encephalopathy Monitor neurostatus 7. Hypercalcemia Monitor , nephrology consult Assessment/Plan Subjective: Patient is awake and alert. Objective: Patient was admitted for pain in the left lower extremity and found to have sepsis related to cellulitis. He presented with elevated lactate levels and was started on Zosyn. Vancomycin was added, and lactate levels are now within normal limits. The patient reports improvement in the color of the left leg. A positive Vera's sign was noted. Venous Doppler ultrasound confirmed an acute DVT in the left lower extremity. The patient also has hypercalcemia, possibly related to excessive Tums use. Nephrology has been consulted. Neuro status is now at baseline. Plan: Start full-dose Lovenox BID for DVT in the left lower extremity. Continue insulin sliding scale and Lantus for hyperglycemia related to type 2 diabetes. Monitor neuro status. TATIANA JAQUEZ NP May 21, 2024 10:14
[2024-05-21 11:05] LABS: Alanine Aminotransferase 31 U/L (7-40); Albumin 4.3 g/dL (3.2-4.8); Alkaline Phosphatase 60 U/L (46-116); Anion Gap 8 (5-15); BUN/Creatinine Ratio 19.1 (10.0-20.0); Bilirubin, Total 0.4 mg/dL (0.2-1.0); Blood Urea Nitrogen 22 mg/dL (9-23); Calcium 10.1 mg/dL (8.7-10.4); Carbon Dioxide 25 mmol/L (20-31); Chloride 105 mmol/L (98-107); Potassium 3.8 mmol/L (3.5-5.1); Sodium 138 mmol/L (136-145); Total Protein 6.9 g/dL (5.7-8.2)
[2024-05-21 11:07] LABS: Kappa Lite Chain Free Serum 31.4 mg/L (3.3-19.4)
[2024-05-21 11:10] LABS: Aspartate Aminotransferase 53 U/L (13-40); Glucose 170 mg/dL (74-106)
[2024-05-21] MEDS ORDERED: CLOP75TA28 PO (12:11)
[2024-05-21] MEDS ORDERED: CEPH500C PO (12:11)
[2024-05-21] MEDS ORDERED: DOXY-286 PO (12:11)
[2024-05-21] MEDS ORDERED: PERCOT PO (12:11)
[2024-05-21] MEDS ORDERED: APIX5TAB PO (12:11)
--- NOTE | 2024-05-21 12:20 | DVHDS2 ---
Discharge Summary Date of Admission May 19, 2024 at 04:32 Date of Discharge: May 21, 2024 Labs/Diagnostic Data: Laboratory Results Test 05/21/24 10:32 05/21/24 06:07 05/20/24 21:02 05/20/24 06:35 Sodium Level 138 mmol/L (136-145) Potassium Level 3.8 mmol/L (3.5-5.1) Chloride Level 105 mmol/L (98-107) Carbon Dioxide Level 25 mmol/L (20-31) Anion Gap 8 (5-15) Blood Urea Nitrogen 22 mg/dL (9-23) Creatinine 1.15 mg/dL (0.700-1.30) Glomerular Filtration Rate Calc 78 mL/min (>90) BUN/Creatinine Ratio 19.1 (10.0-20.0) Serum Glucose 170 mg/dL (74-106) Calcium Level 10.1 mg/dL (8.7-10.4) Total Bilirubin 0.4 mg/dL (0.2-1.0) Aspartate Amino Transferase (AST) 53 U/L (13-40) Alanine Aminotransferase (ALT) 31 U/L (7-40) Alkaline Phosphatase 60 U/L (46-116) Total Protein 6.9 g/dL (5.7-8.2) Albumin 4.3 g/dL (3.2-4.8) POC Glucose 134 mg/dl (70-106) Vancomycin Level Trough 10.8 ug/mL (5-10) Test 05/20/24 06:27 05/19/24 19:13 05/19/24 02:25 05/19/24 02:00 White Blood Count 4.2 10^3/uL (4.4-10.8) Red Blood Count 3.97 10^6/uL (4.5-5.90) Hemoglobin 11.5 g/dL (13.5-17.5) Hematocrit 34.2 % (41.0-53.0) Mean Corpuscular Volume 86.1 fL (80.0-100.0) Mean Corpuscular Hemoglobin 28.9 pg (28.0-32.0) Mean Corpuscular Hemoglobin Concent 33.6 g/dL (32.0-36.0) Red Cell Distribution Width 17.7 % (11.8-14.3) Platelet Count 111 10^3/uL (140-450) Mean Platelet Volume 8.5 fL (6.9-10.8) Neutrophils (%) (Auto) 45.1 % (37.0-80.0) Lymphocytes (%) (Auto) 38.2 % (10.0-50.0) Monocytes (%) (Auto) 13.1 % (0.0-12.0) Eosinophils (%) (Auto) 2.5 % (0.0-7.0) Basophils (%) (Auto) 1.1 % (0.0-2.0) Neutrophils # (Auto) 1.9 10 ^3/uL (1.6-8.6) Lymphocytes # (Auto) 1.6 10 ^3/uL (0.4-5.4) Monocytes # (Auto) 0.6 10 ^3/uL (0-1.3) Eosinophils # (Auto) 0.1 10 ^3/uL (0-0.8) Basophils # (Auto) 0 10 ^3/uL (0-0.2) Nucleated Red Blood Cells 0.0 % Vitamin D 25-Hydroxy 16.2 ng/mL (30.0-100) Parathyroid Hormone (Intact) 8.6 pg/mL (18.4-80.1) Random Vancomycin Level 11.6 ug/mL (5-10) Free Cyrus Light Chains, Quant 31.4 mg/L (3.3-19.4) Free Cyrus/Lambda Light Chain Ratio 1.18 (0.26-1.65) Lactic Acid Level 1.3 mmol/L (0.4-2.0) Troponin I High Sensitivity 5 ng/L (</=54) Urine Creatinine 62.19 mg/dL (30.0-125.0) Urine Protein/Creatinine Ratio 0.19 Urine Opiates Screen Neg (NEGATIVE) Urine Fentanyl Screen Neg (NEGATIVE) Urine Barbiturates Screen Neg (NEGATIVE) Urine Phencyclidine Screen Neg (NEGATIVE) Urine Amphetamines Screen Neg (NEGATIVE) Urine Benzodiazepines Screen Pos (NEGATIVE) Urine Cocaine Screen Neg (NEGATIVE) Urine Cannabinoids Screen Neg (NEGATIVE) Test 05/19/24 00:14 05/18/24 23:27 05/18/24 02:00 Differential Total Cells Counted 100.0 (100) Neutrophils % (Manual) 60 (37.0-80.0) Band Neutrophils % (Manual) 0 Lymphocytes % (Manual) 26 (10.0-50.0) Monocytes % (Manual) 12 (0-12) Eosinophils % (Manual) 2 (0-7) Basophils % (Manual) 0 (0.0-2.0) Metamyelocytes % (manual) 0 Myelocytes % (Manual) 0 Promyelocytes % (Manual) 0 Blast Cells % (Manual) 0 Reactive Lymphocytes 0 Platelet Estimate Decreased Hemoglobin A1c 11.0 % A1C (<5.7) Plasma/Serum Blood Alcohol < 3.0 mg/dL (<10) Urine Color Light-yellow (Yellow) Urine Clarity Clear (Clear) Urine pH 7.0 (5.0-9.0) Urine Specific [place] 1.029 (1.001-1.035) Urine Protein Negative (Negative) Urine Ketones Negative (Negative) Urine Blood Negative /uL (Negative) Urine Nitrite Negative (Negative) Urine Bilirubin Negative (Negative) Urine Urobilinogen Normal mg/dL (Negative) Urine Leukocyte Esterase Negative /uL (Negative) Urine RBC 1 /hpf (0 - 3) Urine Microscopic WBC 1 /HPF (0-3) Urine Squamous Epithelial Cells Few /hpf (<5) Urine Bacteria None seen /hpf (None Seen) Urine Yeast (Budding) Occasional /hpf (None Urine Glucose 4+ mg/dL (Normal) Other Laboratory Tests 05/21/24 10:32 05/20/24 06:27 Brief Hx & Hospital Course: 49 yo male patient with hx of DM, HLD, HTN, arterial vascular disease, and right BKA c/o left leg weakness and pain as well as right stump pain. Patient also sts to have diarrhea and confusion. Patient is a poor historian. While in the emergency department the patient was evaluated by the provider, As per provider: Labs, vital signs, and imagining monitored. Long Berumen is a 49-year-old male admitted for pain and swelling to his left lower extremity. The patient's left leg was red, swollen, very tender to the touch, and he was diagnosed with cellulitis. The patient had an elevated lactate level and was found to have sepsis related to cellulitis. Ultrasound venous Doppler was positive for DVT, and arterial Doppler was inconclusive but did show severe PAD. The patient was previously on aspirin. The patient has an existing right BKA. He reported feeling much better and requested to transition to oral medications. He did not want to stay another day in the hospital. The patient is aware he will need to continue anticoagulation with Eliquis for up to six months and will need a follow-up ultrasound. He will also need an urgent consult with a vascular surgeon to evaluate PAD in the left lower extremity. Plavix was added for PAD management. The patient was instructed to follow up with his PCP in one week. He was also instructed to stop taking Tums, as excessive Tums use was related to ABBEY and hypercalcemia. The patient received proper medical treatment and medications. Vital signs, Imaging and Laboratory Work was monitored. All consults recommendations were followed as provided. There were no complaints or new complaints upon discharge, all questions and concerns were answered. Patient was advised to return to the ER or call 911 if any headaches, dizziness, shortness of breath, chest pain, bleeding, fevers, or worsening of medical condition. Patient/Family was counseled about treatment plan, medications, possible side effects, patientverbalized understanding. All questions were answered to the best of my ability. The patient symptoms improved and they are okay to be DC. Condition at Discharge: Good Final Diagnosis/Problems List DVT to the left lower extremity Sepsis related to cellulitis of the left lower extremity ABBEY with vasomotor nephropathy related to excessive Tums use Hypercalcemia related to excessive Tums use Severe PAD Discharge Disposition: Home Discharge Instruct/Medications Diet: Consistent carbohydrate Activity: No Restrictions, As Tolerated Follow Up/Referral: pcp 1 week Medications: stop asa for now start eliquis for dvt start plavix for PAD Discharge Statement: "Patient was advised to return to the ER or call 911 if any headaches, dizziness, shortness of breath, chest pain, abdominal pain, bleeding, fevers, or worsening of medical condition. Patient was counseled about treatment plan, medications, possible side effects, patientverbalized understanding. All questions were answered to the best of my ability. This discharge took greater then 30 minutes in planning, reviewing documentation, counseling the patient, and discussing with other team members." ASSESSMENT ASSESSMENT Assessment Sepsis related to Cellultis DVT LLE Severe PAD Acute kidney injury- Resolved ( abbey r/t hypercalcemia related to excessive tums use) DM 2 TATIANA JAQUEZ NP May 21, 2024 12:20
--- NOTE | 2024-05-21 14:58 | DVHPN2 ---
Progress Note - Dictate Date Seen: May 21, 2024 Medical Necessity Reason Pt with a Central, PICC or Fol: No Subjective no new symptoms vital signs Vital Sign Date Time Temp Pulse Resp B/P (MAP) Pulse Ox O2 Delivery O2 Flow Rate FiO2 05/21/24 13:53 85 17 150/92 05/21/24 13:00 98.1 97 98.1 05/21/24 08:10 Room Air* 0 21 Total Intake and Output 05/20/24 05/20/24 05/21/24 15:00 23:00 07:00 Intake Total 100 ml 1575 ml 1200 ml Output Total 1100 ml 800 ml Balance 100 ml 475 ml 400 ml medications Current Medications Medications Dose Ordered Sig/Suleman Route Start Time Stop Time Status Last Admin Dose Admin Temazepam 15 mg QHSP PRN PO 05/19/24 04:45 Ondansetron HCl 4 mg Q4HP PRN IV 05/19/24 04:45 Acetaminophen 650 mg Q6HP PRN PO 05/19/24 04:45 Piperacillin Sod/ Tazobactam Sod 100 ml @ 100 mls/hr Q8HR IV 05/19/24 06:00 05/21/24 13:52 100 MLS/HR Diagnostic Test (Pha) 1 strip ACHS 05/19/24 07:00 05/21/24 11:42 1 STRIP Insulin Human Regular HS SC 05/19/24 22:00 05/20/24 21:30 6 UNITS Insulin Human Regular AC SC 05/19/24 07:00 05/21/24 11:48 3 UNITS Dextrose 50 ml UD PRN IV 05/19/24 04:45 Sodium Chloride 1,000 ml @ 100 mls/hr Q10H IV 05/19/24 10:45 05/21/24 13:11 100 MLS/HR Vancomycin HCl 0 ml @ 0 mls/hr UD IV 05/19/24 18:30 Vancomycin HCl 250 ml @ 250 mls/hr Q12HR IV 05/20/24 10:00 05/21/24 09:45 250 MLS/HR Morphine Sulfate 4 mg Q4HPRN PRN IV 05/20/24 11:30 05/21/24 13:53 4 MG Oxycodone/ Acetaminophen 2 tab Q4HP PRN PO 05/20/24 11:30 05/21/24 11:43 2 TAB Sennosides 17.2 mg HS PO 05/20/24 22:00 05/20/24 21:29 17.2 MG Insulin Glargine 10 units BID@1000,2200 SC 05/20/24 11:30 05/21/24 09:46 10 UNITS Enoxaparin Sodium 110 mg Q12HR SC 05/20/24 22:00 05/21/24 09:33 110 MG objective Gen: NAD HEENT: NC,AT Lungs: C TA b/l Cardiac: RRR, no murmur Abd: soft, no tenderness Ext: Rt BKA Neuro: AAOx3, no focal deficits laboratory and microbiology Laboratory Tests 05/21/24 10:32 05/20/24 06:27 Test 05/21/24 10:32 Range/Units Serum Glucose 170 H 74-106 mg/dL Assessment/Plan Assessment: ABBEY, secondary to hypercalcemia. UA is bland Hypercalcemia. unclear etiology, ? possibly from excessive TUMS intake. Improving Cellulitis Lactic acidosis PAD s/p Rt BKA DM HTN HLD obesity Plan: GFR improving Continue NS at 100 cc/h f/u hypercalcemia work up PTH is appropriately low 25 oh vit D is not elevated. It is low Daily, BMP, and Mg Strict I&Os Plan discussed with: Patient BIN HASSAN MD May 21, 2024 14:58
[2024-05-21] MEDS: SODIUM CHLORIDE 0.9% 1,000 ML IV SCH (15:00)
[2024-05-24 07:07] LABS: Albumin 2.6 g/dL (2.9-4.4); Alpha-1-Globulin 0.3 g/dL (0.0-0.4); Alpha-2-Globulin 0.9 g/dL (0.4-1.0); Gamma Globulin 1.1 g/dL (0.4-1.8); Globulin Total 3.7 g/dL (2.2-3.9); Protein Total Serum 6.3 g/dL (6.0-8.5)
[2024-05-24 08:07] LABS: Albumin Urine Note: % (.); Protein Total Urine 11.9 mg/dL (Not Estab.)
== END 2024-05-21 16:50 | disposition home or self-care (01) | DRG 720 ==
LOC: EDBD 23:09 → ER 23:09 → OVERFLOW 05-19 04:32 → WEST WING 05-19 22:08
PROVIDERS: ADMIT Nurse Practitioner; ATTEND Nurse Practitioner
DX: A41.9 Sepsis, unspecified organism (principal); N17.0 Acute kidney failure with tubular necrosis; G93.41 Metabolic encephalopathy; E87.20 Acidosis, unspecified; I82.402 Acute embolism and thrombosis of unspecified deep veins of left lower extremity; L03.116 Cellulitis of left lower limb; E11.65 Type 2 diabetes mellitus with hyperglycemia; E66.9 Obesity, unspecified; E78.5 Hyperlipidemia, unspecified; Z68.33 Body mass index [BMI] 33.0-33.9, adult; E11.51 Type 2 diabetes mellitus with diabetic peripheral angiopathy without gangrene; E83.52 Hypercalcemia; N39.0 Urinary tract infection, site not specified; I10 Essential (primary) hypertension; Z89.511 Acquired absence of right leg below knee
CPT/HCPCS: 36415; 70450; 71045; 73630; 73706; 80048; 80053; 80202; 80307; 80320; 81001; 82306; 82570; 82962; 83036; 83521; 83605; 83970; 84155; 84156; 84165; 84166; 84484; 85007; 85025; 85027; 87040; 93005; 93971; 96361; 96365; 96375; 99291; G0378; J1815; J1885; J2405; J2543